=== PATIENT | male | born 1960 ===

== ENCOUNTER → 2017-03-15 | Outpatient (CLI) | payer BC | END | disposition short-term general hospital (02) | LOC: CLCARD 07:52 | DX: I11.0 Hypertensive heart disease with heart failure (principal); I50.9 Heart failure, unspecified; I42.9 Cardiomyopathy, unspecified; E66.9 Obesity, unspecified; J44.9 Chronic obstructive pulmonary disease, unspecified; G47.30 Sleep apnea, unspecified; N52.9 Male erectile dysfunction, unspecified ==